=== PATIENT | female | born 1990 ===

== ENCOUNTER → 2023-03-20 | Outpatient (CLI) | payer MEDICAID ==
[2023-03-22 00:06] LABS: Chlamydia Trachomatis, NAA Negative (Negative); Neisseria gonorrhoeae, NAA Negative (Negative)
== END | disposition home or self-care (01) ==
LOC: LAB 12:55
PROVIDERS: ATTEND Obstetrics & Gynecology
DX: Z11.3 Encounter for screening for infections with a predominantly sexual mode of transmission (principal)